=== PATIENT | female | born 1995 | race Caucasian/White ===

== ENCOUNTER 2019-02-08 05:10 | Day surgery (SDC) | payer OTHER ==
[2019-02-07 13:53] LABS: HEMATOCRIT 39.9 % (36.0-48.0); HEMOGLOBIN 12.8 g/dL (12-16); MCH 26.8 pg (26.0-34.0); MCHC 32.1 g/dL (31.0-37.0); MCV 83.5 fL (80.0-100.0); RBC 4.78 10x6/uL (4.00-5.40); WBC 11.6 10x3/uL (4.8-10.8)
[~2019-02-08] VITALS: Ht 73.7 cm; Wt 115.7 kg
[~2019-02-08 05:10] MED LIST: ATIVAN1 MG PO; ZOLOFT50 MG PO
[2019-02-08 06:15] VITALS: BP 129/90; Ht 73.7 cm; Wt 115.7 kg
[2019-02-08 06:23] LABS: HCG URINE NEGATIVE (NEGATIVE)
--- NOTE | 2019-02-08 07:56 | NUR ---
RIGHT ANTERIOR ANKLE INJECTED PRIOR TO PREP BY DOCTOR WITH A MIX OF 5 ML LIDOCAINE 1% AND 5 ML MARCAINE 0.25% SITE PREPPED WITH CHLORAPREP X2 FROM TOURNIQUET ON THIGH TO TOES CIRCUMFERENTIALLY
--- NOTE | 2019-02-22 08:17 | OP ---
PATIENT NAME: SHREE PRINCE MEDICAL RECORD: [id number] :93 LOCATION:[facility] ADMISSION DATE: SURGEON: RAISSA BUCKLEY DPM DATE OF OPERATION: 02/08/2019 PREOPERATIVE DIAGNOSIS: Right ankle instability with ATFL rupture. POSTOPERATIVE DIAGNOSES: Right ankle instability with ATFL rupture, avulsion fracture fragment distal anterior fibula. PROCEDURES: Right ankle arthroscopy with extensive debridement. Right ATFL reconstruction with removal of fracture fragment. ANESTHESIA: General with preoperative popliteal block per the anesthesia department as well as intraoperative injection around the saphenous nerve, 9 cc total of lidocaine and Marcaine plain. HEMOSTASIS: Right thigh tourniquet at 350 mmHg. PREOPERATIVE DETAILS: The patient was taken to the OR and placed on the operating table in a supine position. This was followed by induction of general anesthesia and infiltration of the local anesthetic on the medial anterior ankle. The right extremity was then prepped and draped in usual aseptic technique, followed by exsanguination and inflation of tourniquet. A 15 blade was used to create a small stab incision over the anterior medial gutter of the right ankle. The incision was deepened down bluntly with a hemostat, and the joint was punctured with a hemostat, and a trocar and cannula were introduced, followed by introduction of the camera. 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 There was also noted to be some impinging capsulitis on the medial and lateral gutter. Synovial shaver was then introduced into a lateral portal, which was made with a stab incision, followed by puncturing of the joint capsule with a hemostat. Once the synovial shaver was introduced, extensive debridement was performed through this portal. The camera was switched to the lateral portal and the synovial shaver to the medial portal and debridement was continued. Upon inspection of the lateral gutter with the camera, there was noted to be rupture of the ATFL with loose bony fragment at the anterior distal aspect of the fibula at the insertion of the ATFL. Continued extensive debridement occurred. At this time, the foot was placed in inversion stress looking at the lateral gutter, which showed no diastasis of the talus from the fibula indicating that the CF ligament was intact. I was able to actually visualize it with the scope as well in the joint and it was intact. The camera and synovial shaver were removed. PROCEDURE #2: ATFL reconstruction, right ankle: Utilizing the incision over the anterior lateral gutter elongated along the anterior margin of the fibula and just underneath the fibula, the incision was deepened down through subcutaneous tissue. Blunt dissection was carried down to the joint capsule, which was incised with a 15 blade and the area of coursing of the ATF ligament was prepped. There was noted to be quite a large bony fragment on the insertion of the ATFL. It was excised. Once the insertion of the ATFL was prepped, 2 drill holes were made in the talus and one in the fibula. Utilizing the internal brace, the internal brace was placed under physiologic tension. Following the insertion of the internal brace, there was excellent range of motion of the joint. There was negative anterior drawer. At this time, OPERATIVE REPORT [id number] SHREE PRINCE utilizing a 2.0 FiberWire, modified Calistrom was performed over the top of the internal brace. The 2-0 Vicryl was used to close the deep tissue, 4-0 Rapide was used to close the subcutaneous tissue as well as close the skin with 4-0 Rapide in a subcuticular technique, followed by Dermabond. A simple interrupted suture was placed in the anterior medial stab incision. Dermabond was placed in both wounds, followed by Adaptic, 4 x 4 and conform and a modified Dodd compression dressing. Tourniquet was deflated. POSTOPERATIVE DETAILS: The patient tolerated the procedure well and left the OR with vital signs stable and vascular status at preoperative levels. The patient was transported to recovery per anesthesia in stable condition. TRANSINT:[id number] Voice Confirmation ID: [id number] DOCUMENT ID: [id number] RAISSA BUCKLEY DPM at 0817 CC: [id number] DICTATION DATE: 02/08/19847 [facility] ATTENDANT: 02/08/19915 [facility] 02/08/19 [id number] [place] [address]
== END 2019-02-08 10:30 | disposition home or self-care (01) ==
LOC: D.OPS 05:10 → D.PAN 07:00 → D.OPS 07:00
PROVIDERS: Anesthesiology; ATTEND Podiatrist
DX: M25.371 Other instability, right ankle (principal); S93.491A Sprain of other ligament of right ankle, initial encounter; S82.491A Other fracture of shaft of right fibula, initial encounter for closed fracture